=== PATIENT | female | born 1935 | race Caucasian/White ===

== ENCOUNTER 2020-10-22 09:45 | Inpatient (IN) ==
[2020-10-22 10:33] LABS: Hematocrit 45.6 % (37.0-47.0); Hemoglobin 14.9 gm/dL (12.5-16.0); Mean Cell Volume 91.6 fl (78-100); Mean Corpuscular Hemoglobin 29.9 pg (27-31); Mean Corpuscular Hgb Conc 32.7 g/dl (32-36); Mean Platelet Volume 8.3 fl (8-12.5); Neutrophil # 3.8 K/mm3 (1.3-6.0); Neutrophil % 66.5 % (42-75.0); Platelet Count 264 K/mm3 (150-450); Red Blood Count 4.98 M/mm3 (4.2-5.4); Red Cell Distribution Width 12.7 % (11.5-14.0); White Blood Count 5.7 K/mm3 (4.0-10.5)
[2020-10-22 10:43] LABS: Prothrombin Time (Patient) 10.6 Seconds (9.1-10.7)
[2020-10-22 10:46] LABS: Albumin * 3.4 gm/dl (3.4-5.0); Anion Gap 12.4 mmol/L (6.8-13.8); BUN/Creatinine Ratio 15.2 (9.0-21.6); Bilirubin, Total 0.4 mg/dL (0.0-1.1); Ca. Corrected For Albumin 9.3 mg/dL (8.4-10.2); Calcium * 9.1 mg/dL (7.9-10.9); Carbon Dioxide 26.3 mmol/L (24-32.6); Potassium 3.7 mmol/L (3.4-4.6); Total Protein 6.6 gm/dL (6.2-8.2)
[2020-10-22 10:56] LABS: INR 1.07 INR (0.92-1.08); Partial Thrombolplastin Time 24.4 Seconds (24-32)
[2020-10-22] MEDS ORDERED: NORMAL SALINE 1,000 ML IV ONE (11:35)
--- NOTE | 2020-10-22 11:48 | ERNOTE ---
Neuro HPI ER Record Date of Service: 10/22/20 Presenting Symptoms: weakness, other - let side Sx Time Seen by Provider: 10/22/20 09:53 Source: patient Exam Limitations: no limitations Immunizations: IMMUNIZATION HX Immunizations Up to Date Yes History of Influenza Vaccine Yes Hx Pneumococcal Vaccination No Allergies/Adverse Reactions: Allergies Allergy/AdvReac Type Severity Reaction Status Date / Time codeine Allergy Swelling Verified 10/22/20 09:55 (Other) Home Medications: HOME MEDICATIONS aspirin 81 mg tablet,delayed release 81 mg PO DAILY 07/21/18 [Last Taken Unknown] diphenhydramine 25 mg-acetaminophen 500 mg tablet 1 tab PO HS PRN 07/21/18 [Last Taken Unknown] atorvastatin 40 mg tablet 40 mg PO DAILY #90 tab 03/04/20 [Last Taken Unknown] lisinopril 20 mg tablet 20 mg PO DAILY #90 tab 08/23/20 [Last Taken Unknown] - History of Present Illness Narrative: Patient arrives via EMS for stroke like-symptoms. She felt fine when she went to bed around 2am. When she awoke she had difficulty getting out of bed and noticed her left arm and leg were weak and felt strange. EMS called. No headache, no vision changes. She has never had anything like this before. Now her weakness is better but she feels like left left side still does not work like normal and does not feel normal. Sx improved however from when she awakened. Onset: upon waking Severity: moderate - Character of Deficits New weakness: Present: LUE, LLE. Absent: facial (rt) Additional Deficits: Absent: vision problems Baseline Gait: Present: walks w/o assistance Associated Symptoms: Denies: fever/chills, chest pain, neck/back pain, headache, altered mental status, decreased responsiveness Prior Treament: Denies: recently seen, similar symptoms before Review of Systems - Review of Systems Constitutional: Absent: fever EYE: Present: no symptoms reported ENT: Absent: sore throat Respiratory: Absent: shortness of breath Cardiology: Absent: chest pain Gastrointestinal/Abdominal: Absent: abdominal pain Genitourinary: Absent: dysuria Skin: Absent: rash Neurological: Present: See HPI All Other Systems: All systems neg except as marked Medical History (Last Reviewed 10/22/20 @ 11:45 by Daniel Sahni MD) Influenza vaccine not given (Acute) Onset Date: Unknown gotten elsewhere TIA (transient ischemic attack) (Chronic) History of Sialoadenitis (Chronic) Seborrheic keratosis (Chronic) Mammary duct ectasia (Chronic) Impaired fasting glucose (Chronic) Hyperlipidemia (Chronic) Diverticulosis of colon (Chronic) Surgical History: Surgical History (Last Reviewed 10/22/20 @ 11:45 by Daniel Sahni MD) Ganglion, tendon sheath (Chronic) Encounter for screening colonoscopy (Chronic) , , 02/15/2009 [place] diverticulosis Hx of breast biopsy (Chronic) Benign skin lesion (Chronic) keratosis chest Family History: Family History (Last Reviewed 10/22/20 @ 11:45 by Daniel Sahni MD) Father CVA (cerebral vascular accident) Heart disease Hypertension Mother , old age, arthritis No problems noted. Brother Cancer colon Sister Cancer bone Father Hypertension Heart disease Enlarged prostate CVA (cerebral vascular accident) Mother Arthritis Social History: (Last Reviewed 10/22/20 @ 11:45 by Daniel Sahni MD) Social History: adopted: No foster care: No care home: No Marital status: household members: spouse caregiver/support person: No current occupational status: retired Highest level of school completed/degree received: Master's degree Service: No Tobacco: Smoking Status: Current every day smoker Alcohol: alcohol intake: never Substance Use: substance use type: does not use Dietary Habits: caffeine: Yes Exercise: Physical activity functional status: independent ambulation frequency: does not exercise Physical Exam - Physical Exam General Appearance: Present: alert, no apparent distress Head Exam: Present: normal inspection, no evidence of injury Eye Exam: Normal inspection: bilateral, PERRL: bilateral Ears, Nose, Throat: Present: normal ENT inspection Neck: Present: normal inspection Respiratory: Present: no respiratory distress, normal breath sounds, no accessory muscle use, lungs clear Cardiovascular/Chest: Present: regular rate, rhythm Gastrointestinal/Abdominal: Present: normal bowel sounds, nontender, soft Back Exam: Absent: CVA tenderness (R), CVA tenderness (L) Extremity Exam: Present: normal inspection, no edema Neurological Exam: Present: alert, sales product specialist II-XII nml as tested, other - No pronator drift, finger to nose wnl. She can hold left leg up off the bed against gravity for 5 seconds. Subjetively sensation to LT different left arm and leg but she s tates she can feel me touching her. Skin Exam: Present: normal color, warm/dry Progress - Results and Orders Patient's Lab Results:: I have reviewed the patient's lab results. - Vital Signs Patient's Vital Signs:: I have reviewed the patient's vital signs. Vital Signs: Vital Signs 10/22/20 09:52 Temperature 36.3 C Pulse Rate 66 Respiratory Rate 16 Blood Pressure 153/85 H O2 Sat by Pulse Oximetry 94 - EKG EKG #1 EKG read: Interp. by me EKG Comments: Sinus Bradycardia rate 59. RBBB. Non-specific ST/T wave changes, no STEMI noted. - X-Ray X-Ray #1 X-Ray: chest Interpretation: Interp. by me X-ray Comments: I personally reviewed x-ray image as well as official radiology report ' - CT/Ultrasound CT/Ultrasound Narrative: I reviewed official radiology report for CT head. . - Progress/Reassessment Chief Complaint: CerebroVascular Accident Progress Note-Subjective: 10/22/20 11:39 Patient last known well 2am. Sx improved but not entirely resolved. She will need admission for stroke work up but she is not in any therapeutic window. She still has subjective abnormal feeling left arm and leg but can hold them off the bed against gravity and normal finger to nose. I spoke with Dr Chatterjee who is lead solutions architect and will admit the patient. Seems like this is resolving more like a TIA but her Sx not entirely resolved, not in tPA or interventional window. 10/22/20 11:48 Departure Clinical Impression: Stroke-like symptoms - Departure Disposition: Still a patient Condition: Fair Referrals: Manuel Rahman MD [Primary Care Provider] -
[2020-10-22 12:34] LABS: Urine Bilirubin Negative (NEGATIVE); Urine Ketone Negative (NEGATIVE); Urine Nitrite Negative (NEGATIVE); Urine Protein Negative (NEGATIVE); Urine Specific Gravity <=1.005 SP.GR. (1.005-1.010); Urine Urobilinogen Normal (NORMAL)
[2020-10-22 12:42] LABS: Urine Appearance Slightly Cloudy (CLEAR); Urine Bacteria None Seen; Urine Blood 5 /ul (NEGATIVE); Urine Color Pale Yellow; Urine RBC 0-5 /hpf (0-5); Urine WBC 0-5 /hpf (0-5)
[2020-10-22] MEDS ORDERED: ASPIRIN 81 MG TAB.CHEW PO ONE (18:56)
--- NOTE | 2020-10-22 21:48 | HP ---
Chief Complaint - Chief Complaint Date of Service: 10/22/20 Time of Service: 21:47 Chief Complaint: Left sided weakness (Leg>>arm) History of Present Illness: 84-year-old female brought in by EMS after she was found to have developed left-sided weakness, leg much worse than her arm. Patient denied headache, vision changes. She did endorse some sensory changes in her leg but nowhere else. In the ER patient had a head CT which showed no acute intracranial normality. She has history of TIA and the ER physician stated that she had already significantly improved during her stay but wanted to keep her under observation to be safe. Her lab work was benign in the ER. Her vital signs showed her to have elevated blood pressure otherwise were stable. She was brought over for observation and when evaluated here patient had only left lower extremity abnormalities. Photographic Double strength the left was comparable to the right. No sensory changes in her upper extremities. She had normal facial symmetry and no deviation of her tongue. Cranial nerves are intact. Patient's real concern was left lower extremity abnormalities. Patient was started on rosuvastatin and aspirin here. She passed bedside swallow study and a heart healthy diet was ordered for her. She was very pleasant during her examination. Medical History (Last Reviewed 10/22/20 @ 14:27 by Joyce Srinivasan RN) Influenza vaccine not given (Acute) Onset Date: Unknown gotten elsewhere TIA (transient ischemic attack) (Chronic) History of Sialoadenitis (Chronic) Seborrheic keratosis (Chronic) Mammary duct ectasia (Chronic) Impaired fasting glucose (Chronic) Hyperlipidemia (Chronic) Diverticulosis of colon (Chronic) Surgical History: Surgical History (Last Reviewed 10/22/20 @ 14:27 by Joyce Srinivasan RN) Ganglion, tendon sheath (Chronic) Encounter for screening colonoscopy (Chronic) , , 02/15/2009 [place] diverticulosis Hx of breast biopsy (Chronic) Benign skin lesion (Chronic) keratosis chest Family History: Family History (Last Reviewed 10/22/20 @ 14:27 by Joyce Srinivasan RN) Father CVA (cerebral vascular accident) Heart disease Hypertension Mother , old age, arthritis No problems noted. Brother Cancer colon Sister Cancer bone Father Hypertension Heart disease Enlarged prostate CVA (cerebral vascular accident) Mother Arthritis Social History: (Last Reviewed 10/22/20 @ 14:27 by Joyce Srinivasan RN) Social History: adopted: No foster care: No usp: No Marital status: household members: spouse caregiver/support person: No current occupational status: retired Highest level of school completed/degree received: Master's degree Service: No Tobacco: Smoking Status: Current every day smoker Alcohol: alcohol intake: never Substance Use: substance use type: does not use Dietary Habits: caffeine: Yes Exercise: Physical activity functional status: independent ambulation frequency: does not exercise Review Of Systems (GEN) - Review of Systems Generalized/Overall Review: Absent: Weakness, Chills, Fever EENTM: Present: No Symptoms Reported Respiratory: Present: No Symptoms Reported Cardiac: Present: No Symptoms Reported Abdominal: Present: No Symptoms Reported Genitourinary: Present: No Symptoms Reported Musculoskeletal: Present: No Symptoms Reported Neurological: Present: Numbness - LLE, Weakness - LLE. Absent: Headache, Pre- existing Deficit Skin: Present: No Symptoms Reported Endocrine: Present: No Symptoms Reported Immunizations: IMMUNIZATION HX Immunizations Up to Date Yes History of Influenza Vaccine Yes Hx Pneumococcal Vaccination No Allergies/Adverse Reactions: Allergies Allergy/AdvReac Type Severity Reaction Status Date / Time codeine Allergy Swelling Verified 10/22/20 09:55 (Other) Home Medications: HOME MEDICATIONS atorvastatin 40 mg tablet 40 mg PO DAILY #90 tab 03/04/20 [Last Taken Unknown] lisinopril 20 mg tablet 20 mg PO DAILY #90 tab 08/23/20 [Last Taken Unknown] Exam - Exam Vital Signs: Vital Signs - Last Taken Temp 36.6 C 10/22/20 18:50 Pulse 67 10/22/20 18:50 Resp 20 10/22/20 18:50 BP 171/78 H 10/22/20 18:50 Pulse Ox 95 10/22/20 18:50 Constitutional: Present: Alert, Oriented x3, Elderly ENT Exam: Present: hearing grossly normal Eye Exam: bilateral eye: normal inspection, PERRL, EOMI Neck: Present: non-tender, supple Respiratory: Present: lungs clear, normal breath sounds Cardiovascular/Chest: Present: regular rate, rhythm, no murmur Peripheral Pulses: dorsalis-pedis (R): 2+, dorsalis-pedis (L): 2+ Abdomen: Present: Normal bowel sounds, soft, nontender, nondistended Skin Exam: Present: normal color, warm/dry Neurologic: Present: slasher tender helper II-XII nml as tested, alert, oriented x 3, motor weakness - 3+/5 LLE, sensory deficit - Numbness in LLE, though she does feel pain. Light touch is off. Absent: facial droop Eye contact: Present: cooperative, good eye contact Thoughts: Present: normal thought pattern, normal mood /affect Diagnostic Studies: Abnormal Lab Results 10/22/20 10/22/20 10/22/20 Range/Units 09:57 09:57 12:15 Immature Gran % (Auto) 0.50 H (0.001-0.429) % Lymphocytes # 1.39 L (1.5-3.5) k/mm3 Chloride 107 H (97-106) mmol/L Urine Blood 5 H (NEGATIVE) /ul Ur Epithelial Cells 5-10 H (0-5) /hpf Laboratory Results WBC 5.7 K/mm3 (4.0-10.5) 10/22/20 09:57 RBC 4.98 M/mm3 (4.2-5.4) 10/22/20 09:57 Hgb 14.9 gm/dL (12.5-16.0) 10/22/20 09:57 Hct 45.6 % (37.0-47.0) 10/22/20 09:57 MCV 91.6 fl (78-100) 10/22/20 09:57 MCH 29.9 pg (27-31) 10/22/20 09:57 MCHC 32.7 g/dl (32-36) 10/22/20 09:57 RDW 12.7 % (11.5-14.0) 10/22/20 09:57 Plt Count 264 K/mm3 (150-450) 10/22/20 09:57 MPV 8.3 fl (8-12.5) 10/22/20 09:57 Immature Gran % (Auto) 0.50 % (0.001-0.429) H 10/22/20 09:57 Immature Gran # (Auto) 0.03 K/mm3 (0.000-0.0310) 10/22/20 09:57 Neutrophils % 66.5 % (42-75.0) 10/22/20 09:57 Lymphocytes % 24.3 % (20-51) 10/22/20 09:57 Monocytes % 5.8 % (0.0-9) 10/22/20 09:57 Eosinophils % 2.4 % (0.0-3.0) 10/22/20 09:57 Basophils % 0.5 % (0.0-1.0) 10/22/20 09:57 Nucleated RBC % 0.0 k/mm3 (0-1) 10/22/20 09:57 Neutrophils # 3.8 K/mm3 (1.3-6.0) 10/22/20 09:57 Lymphocytes # 1.39 k/mm3 (1.5-3.5) L 10/22/20 09:57 Monocytes # 0.3 k/mm3 (0.0-1.0) 10/22/20 09:57 Eosinophils # 0.1 k/mm3 (0.0-0.7) 10/22/20 09:57 Absolute Basophils 0.0 k/mm3 (0.0-0.1) 10/22/20 09:57 ESR 15 mm/hr (0-15) 10/22/20 10:30 PT 10.6 Seconds (9.1-10.7) 10/22/20 09:57 INR (Anticoag Therapy) 1.07 INR (0.92-1.08) 10/22/20 09:57 PTT (Frank) 24.4 Seconds (24-32) 10/22/20 09:57 Sodium 142 mmol/L (132-142) 10/22/20 09:57 Plasma Sodium 142 mmol/L (130-142) 10/22/20 09:57 Potassium 3.7 mmol/L (3.4-4.6) 10/22/20 09:57 Chloride 107 mmol/L (97-106) H 10/22/20 09:57 Carbon Dioxide 26.3 mmol/L (24-32.6) 10/22/20 09:57 Anion Gap 12.4 mmol/L (6.8-13.8) 10/22/20 09:57 BUN 10 mg/dL (3-23) 10/22/20 09:57 Creatinine 0.66 mg/dL (0.4-1.4) 10/22/20 09:57 Est GFR (Non-Af Amer) 91 mL/min (60-130) 10/22/20 09:57 BUN/Creatinine Ratio 15.2 (9.0-21.6) 10/22/20 09:57 Random Glucose 109 mg/dL (70-110) 10/22/20 09:57 Calcium 9.1 mg/dL (7.9-10.9) 10/22/20 09:57 Calcium Adj for Albumin 9.3 mg/dL (8.4-10.2) 10/22/20 09:57 Total Bilirubin 0.4 mg/dL (0.0-1.1) 10/22/20 09:57 AST 15 U/L (0-48) 10/22/20 09:57 ALT 21 U/L (19-67) 10/22/20 09:57 Alkaline Phosphatase 120 U/L (50-170) 10/22/20 09:57 Total Protein 6.6 gm/dL (6.2-8.2) 10/22/20 09:57 Albumin 3.4 gm/dl (3.4-5.0) 10/22/20 09:57 Urine Color Pale yellow 10/22/20 12:15 Urine Appearance Slightly cloudy (CLEAR) 10/22/20 12:15 Urine pH 7.0 pH (5.0-7.0) 10/22/20 12:15 Ur Specific [place] <=1.005 SP.GR. (1.005-1.010) 10/22/20 12:15 Urine Protein Negative mg/dL (NEGATIVE) 10/22/20 12:15 Urine Glucose (UA) Negative mg/dL (NEGATIVE) 10/22/20 12:15 Urine Ketones Negative mg/dL (NEGATIVE) 10/22/20 12:15 Urine Blood 5 /ul (NEGATIVE) H 10/22/20 12:15 Urine Nitrate Negative (NEGATIVE) 10/22/20 12:15 Urine Bilirubin Negative mg/dl (NEGATIVE) 10/22/20 12:15 Urine Urobilinogen Normal EU/dl (NORMAL) 10/22/20 12:15 Ur Leukocyte Esterase Negative /ul (NEGATIVE) 10/22/20 12:15 Urine RBC 0-5 /hpf (0-5) 10/22/20 12:15 Urine WBC 0-5 /hpf (0-5) 10/22/20 12:15 Ur Epithelial Cells 5-10 /hpf (0-5) H 10/22/20 12:15 Urine Bacteria None seen (NONE) 10/22/20 12:15 Urine Culture Comments No culture indicated 10/22/20 12:15 SARS-CoV-2 (PCR) Not detected (NotDetected) 10/22/20 11:02 Assessment/Plan - Assessment/Plan (1) TIA (transient ischemic attack) Assessment: Patient with history of TIA, per ER physician and patient her symptoms have improved fairly significant since arriving to the hospital. CTscan of head was negative for any acute intracranial pathology. Patient was given full-strength aspirin when she got to the floor and started on high intensity statin. Patient's blood pressure elevated, allowing for permissive hypertension at this time. Will reevaluate patient in the morning and if she continues to improve the like to be discharged home and can have outpatient work-up. If her symptoms worsen, will change her to inpatient and order an MRI of her head. Likely will order echo and carotid studies as well. We will also start her on another antiplatelet therapy medicine. Problem: Suspected (2) Stroke-like symptoms Problem: Acute (3) Hypertension Problem: Chronic Qualifiers: Hypertension type: essential hypertension Qualified Code(s): I10 - Essential (primary) hypertension (4) Hyperlipidemia Problem: Chronic Qualifiers: Hyperlipidemia type: pure hypercholesterolemia Qualified Code(s): E78.00 - Pure hypercholesterolemia, unspecified
[2020-10-23] MEDS ORDERED: ROSUVASTATIN CALCIUM 20 MG TABLET PO SCH (09:00)
--- NOTE | 2020-10-23 12:43 | PN ---
Subjective - Date and Time Seen Date: 10/23/20 Time: 12:43 Subjective Narrative: Patient states that she feels unchanged from her weakness and numbness in her upper and lower extremity in the left side. Today on exam patient is significantly stronger with her left oreman strength as well as her left lower extremity strength. Appropriate reflexes seen today. Patient though when got up to walk has significant imbalance and poor coordination with the lower extremity. She has a significant right side lateral lean and poor control of her left lower extremity. This does not fact look like a CVA. MRI ordered which we completed tomorrow morning when it is available. Started patient on Plavix today. Continue high-dose statin. Patient blood pressure has been elevated in the 160s to 180s systolically but allowing this to continue for 48 hours to maximize perfusion of her brain. PT is ordered. Objective - Review of Systems Generalized/Overall Review: Denies: Weakness, Chills, Fever EENTM: Reports: No Symptoms Reported Respiratory: Reports: No Symptoms Reported Cardiac: Reports: No Symptoms Reported Abdominal: Reports: No Symptoms Reported Genitourinary Symptoms: Reports: No Symptoms Reported Musculoskeletal Complaints: Reports: No Symptoms Reported Neurological: Reports: Weakness - Left upper and lower extremity. Left lower extremity much worse than her left upper extremity.. Denies: Headache, Numbness - Vitals Vitals: Last Vital Signs Temp 36.7 C 10/23/20 10:00 Pulse 54 L 10/23/20 10:00 Resp 18 10/23/20 10:00 BP 178/82 H 10/23/20 10:00 Pulse Ox 93 10/23/20 10:00 - Exam Constitutional: Present: Alert, Oriented x3, Cooperative, Elderly ENT Exam: Present: hearing grossly normal Neck: Present: non-tender, supple Respiratory: Present: lungs clear, normal breath sounds Cardiovascular/Chest: Present: regular rate, rhythm, no murmur Abdomen: Present: soft, nontender, nondistended Extremity: Present: normal range of motion - Left lower extremity, non-tender - Left lower extremity Skin Exam: Present: normal color, warm/dry Neurologic: Present: alert, normal mood/affect, oriented x 3, abnormal gait - Right-sided lean with ambulation, left lower extremity ataxia, motor weakness - Left lower extremity weakness though improved strength with hip flexion, knee extension, dorsiflexion of her left lower extremity. Fairly symmetrical aside from the dorsiflexion which is significantly different than the right side. Absent: facial droop Appearance: Present: appropriate appearance Eye contact: Present: cooperative, good eye contact Assessment/Plan Plan Narrative: Patient here for likely CVA. Change her to inpatient status today. Started her on Plavix to be taken with her aspirin for dual antiplatelet therapy. Allowing for permissive hypertension. Patient to have MRI of her brain tomorrow morning for further evaluation of likely CVA. PT ordered to evaluate, she will likely need inpatient rehab with the amount of deficit that she does have. We will likely order carotid studies and echocardiogram of her heart tomorrow. Patient on high intensity statin. We will restart patient's blood pressure medication tomorrow morning. Otherwise patient's very pleasant, nurse will call questions or concerns. 1 hour critical care time spent with patient today. - Problems/Diagnosis (1) TIA (transient ischemic attack) Problem: Suspected (2) Stroke-like symptoms Problem: Acute (3) Hypertension Problem: Chronic Qualifiers: Hypertension type: essential hypertension Qualified Code(s): I10 - Essential (primary) hypertension (4) Hyperlipidemia Problem: Chronic Qualifiers: Hyperlipidemia type: pure hypercholesterolemia Qualified Code(s): E78.00 - Pure hypercholesterolemia, unspecified
[2020-10-23] MEDS: CLOPIDOGREL BISULFATE 75 MG TABLET PO SCH (14:33)
[2020-10-23] MEDS: ASPIRIN 325 MG TABLET.DR PO SCH (14:33)
[2020-10-23] MEDS: ROSUVASTATIN CALCIUM 20 MG TABLET PO SCH (20:29)
[2020-10-24] MEDS: CLOPIDOGREL BISULFATE 75 MG TABLET PO SCH (08:10)
[2020-10-24] MEDS: ASPIRIN 325 MG TABLET.DR PO SCH (08:10)
--- NOTE | 2020-10-24 10:48 | PN ---
Subjective - Date and Time Seen Date: 10/24/20 Time: 10:38 Subjective Narrative: Patient is resting comfortably in bed, patient's affect slightly down at the day she started understand the seriousness of her situation. MRI performed this morning which did show focal restricted diffusion in the right basal ganglia involving the posterior globus pallidus and putamen, consistent with acute infarction. PT, OT, and speech ordered for patient. We will also order carotid Doppler studies as well as echocardiogram. Otherwise her vital signs been stable and she denies any other symptoms besides the left-sided weakness which again is much worse than her leg in her upper extremity. Patient has normal facial symmetry, no slurred speech, and cognitively appears to be intact. Objective - Review of Systems Generalized/Overall Review: Reports: No Symptoms Reported EENTM: Reports: No Symptoms Reported Respiratory: Denies: Cough, Shortness of Breath Cardiac: Denies: Chest Pain, Edema Abdominal: Denies: Nausea, Vomiting, Abdominal Pain Genitourinary Symptoms: Reports: No Symptoms Reported Musculoskeletal Complaints: Reports: No Symptoms Reported Neurological: Reports: Numbness - Again subjective numbness, patient states she feels everything and is fairly symmetric compared to her right side in her lower extremities, Weakness. Denies: Pre-existing Deficit Skin: Reports: No Symptoms Reported Endocrine: Reports: No Symptoms Reported - Vitals Vitals: Last Vital Signs Temp 36.4 C 10/24/20 08:00 Pulse 64 10/24/20 08:00 Resp 16 10/24/20 08:00 BP 146/79 10/24/20 08:00 Pulse Ox 93 10/24/20 08:00 - Exam Constitutional: Present: Alert, Oriented x3 ENT Exam: Present: hearing grossly normal Respiratory: Present: lungs clear, normal breath sounds Cardiovascular/Chest: Present: regular rate, rhythm, no murmur Abdomen: Present: soft, nontender, nondistended Extremity: Present: other - Minimal weakness in left lower extremity when resting in bed. Significant ataxia when up and walking with left lower extremity. Significant right-sided posterior lean. Absent: lower extremity edema, leg pain Skin Exam: Present: normal color, warm/dry Neurologic: Present: alert, normal mood/affect, oriented x 3, motor weakness. Absent: facial droop Appearance: Present: appropriate appearance, appropriate insight Eye contact: Present: cooperative, good eye contact Thoughts: Present: normal thought pattern, normal mood /affect - Patient slightly down today which is appropriate for current situation Assessment/Plan Plan Narrative: Patient with confirmed CVA seen on brain MRI this morning. Patient on dual antiplatelet therapy and high intensity statin. Patient to be evaluated by PT, OT, and speech therapy today as patient will likely need inpatient therapy. Carotid studies and echocardiogram ordered for further evaluation of cause of CVA. From a neurological standpoint patient has no worsening symptoms, most issues seen with patient's ambulation as she has significant posterior right- sided been and ataxia of her left lower extremity. Patient sensation mostly intact though she does endorse some numbness in her left lower extremity but is able to fill light touch and pain and states is comparable to her right-sided lower extremity when compared. Patient's affect is slightly down which again is appropriate for current situation. Will consider starting her on antidepressant if she continues to exhibit signs of depression while here. Patient in agreement with treatment plan, states her understanding of needing inpatient rehab. Will wait for recommendations from our therapist before final decision has been made. I did not feel patient is safe to go home though with her deficits. Patient's blood pressure within normal limits currently, still holding blood pressure medicine as I do not want to lower her blood pressure too quickly and would rather her be in the 140s and 150s for the next week. If it reaches 180s systolically then will restart her medications but has not done so that she is been here. 45 minutes critical care time spent with patient today. - Problems/Diagnosis (1) CVA (cerebral vascular accident) Problem: Acute (2) TIA (transient ischemic attack) Problem: Ruled-out (3) Stroke-like symptoms Problem: Acute (4) Hypertension Problem: Chronic Qualifiers: Hypertension type: essential hypertension Qualified Code(s): I10 - Essential (primary) hypertension (5) Hyperlipidemia Problem: Chronic Qualifiers: Hyperlipidemia type: pure hypercholesterolemia Qualified Code(s): E78.00 - Pure hypercholesterolemia, unspecified
[2020-10-24] MEDS: ROSUVASTATIN CALCIUM 20 MG TABLET PO SCH (20:22)
[2020-10-25] MEDS: ASPIRIN 325 MG TABLET.DR PO SCH (09:04)
[2020-10-25] MEDS: CLOPIDOGREL BISULFATE 75 MG TABLET PO SCH (09:05)
--- NOTE | 2020-10-25 11:57 | DS ---
(1) CVA (cerebral vascular accident) Problem: Acute (2) TIA (transient ischemic attack) Problem: Ruled-out (3) Stroke-like symptoms Problem: Acute (4) Hypertension Problem: Chronic Qualifiers: Hypertension type: essential hypertension Qualified Code(s): I10 - Essential (primary) hypertension (5) Hyperlipidemia Problem: Chronic Qualifiers: Hyperlipidemia type: pure hypercholesterolemia Qualified Code(s): E78.00 - Pure hypercholesterolemia, unspecified Date of Discharge:: 10/25/20 Hospital Course: 84-year-old female who was brought in on 10/22/20 for strokelike symptoms. Initially thought to be TIA but symptoms progressed the following day after admission. Patient had significant posterior right-sided lean and ataxia of her left lower extremity. Sensation mostly intact. minimal left upper extremity weakness. Speech is clear, cognition mostly intact. 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 Patient was started on high intensity statin, full-strength aspirin, and Plavix. Carotid Doppler study and echocardiogram unremarkable. Patient was evaluated by PT, OT, and speech therapy while here. All 3 recommended inpatient rehab f for all 3 modalities. Patient was accepted to [facility] inpatient rehab which is closer to family, she should benefit greatly from this. While here her blood pressure has been mildly elevated systolically in the 150s to 160s mostly. Her lisinopril has been held as she has been allowed permissive hypertension since her arrival. Likely should restart this within the next week when she starts therapy. Her blood pressure has never been extremely elevated, high was 178/82. Patient will be discharged from here to the inpatient unit in stable condition. Patient to be on heart healthy diet. Medications have been reconciled and will be sent up there when she departs. Procedures Performed: none Results and Findings: Lab Pending Results 10/22/20 09:57: WBC 5.7, RBC 4.98, Hgb 14.9, Hct 45.6, MCV 91.6, MCH 29.9, MCHC 32.7, RDW 12.7, Plt Count 264, MPV 8.3, Immature Gran % (Auto) 0.50 H, Immature Gran # (Auto) 0.03, Neutrophils % 66.5, Lymphocytes % 24.3, Monocytes % 5.8, Eosinophils % 2.4, Basophils % 0.5, Nucleated RBC % 0.0, Neutrophils # 3.8, Lymphocytes # 1.39 L, Monocytes # 0.3, Eosinophils # 0.1, Absolute Basophils 0.0 10/22/20 09:57: PT 10.6, INR (Anticoag Therapy) 1.07, PTT (Frank) 24.4 10/22/20 09:57: Sodium 142, Plasma Sodium 142, Potassium 3.7, Chloride 107 H, Carbon Dioxide 26.3, Anion Gap 12.4, BUN 10, Creatinine 0.66, Est GFR (Non-Af Amer) 91, BUN/Creatinine Ratio 15.2, Random Glucose 109, Calcium 9.1, Calcium Adj for Albumin 9.3, Total Bilirubin 0.4, AST 15, ALT 21, Alkaline Phosphatase 120, Total Protein 6.6, Albumin 3.4 10/22/20 10:30: ESR 15 10/22/20 11:02: SARS-CoV-2 (PCR) Not detected 10/22/20 12:15: Urine Color Pale yellow, Urine Appearance Slightly cloudy, Urine pH 7.0, Ur Specific [place] <=1.005, Urine Protein Negative, Urine Glucose (UA) Negative, Urine Ketones Negative, Urine Blood 5 H, Urine Nitrate Negative, Urine Bilirubin Negative, Urine Urobilinogen Normal, Ur Leukocyte Esterase Negative, Urine RBC 0-5, Urine WBC 0-5, Ur Epithelial Cells 5-10 H, Urine Bacteria None seen, Urine Culture Comments No culture indicated Discharge Location: Other - [facility] Inpatient rehab Disposition: Short Term Hospital Inpatient Condition: Fair Discharge Activity: Activity as tolerated Discharge Diet: Low fat/chol Usp Therapy: Physical Therapy, Occupation Therapy, Speech Therapy Additional Patient Instructions (free text): To [facility] for PT, OT and Speech therapy to evaluate and treat. Address is [address] in [facility]. Complete Home Medications List: Complete Home Medication List: atorvastatin 40 mg tablet 40 mg PO DAILY #90 tab 03/04/20 lisinopril 20 mg tablet 20 mg PO DAILY #90 tab 08/23/20 RX: Aspirin [Aspirin Enteric Coated] 325 mg PO DAILY tablet. 10/25/20 RX: Clopidogrel Bisulfate [Plavix] 75 mg PO DAILY tab 10/25/20 Forms: Patient Portal Registration
[2020-10-25 12:58] VITALS: BP 153/85
== END 2020-10-25 12:55 | disposition short-term general hospital (02) | DRG 65 ==
LOC: ER 09:45 → MS 09:45
PROVIDERS: ADMIT Family Medicine; ATTEND Family Medicine
DX: R26.89 Other abnormalities of gait and mobility; I63.9 Cerebral infarction, unspecified; E78.00 Pure hypercholesterolemia, unspecified; I69.354 Hemiplegia and hemiparesis following cerebral infarction affecting left non-dominant side; Z72.0 Tobacco use; I10 Essential (primary) hypertension; R53.1 Weakness